=== PATIENT | male | born 1985 | race Caucasian/White ===

== ENCOUNTER 2019-11-18 21:20 | Emergency (ER) | payer OTHER ==
[~2019-11-18] VITALS: Ht 193 cm; Wt 108.9 kg
[2019-11-18] MEDS ORDERED: SYNTHROID200 MCG (21:52)
[2019-11-18 22:46] LABS: ABSOLUTE BASOPHILS 0.1 thou/uL (0.0-0.2); ABSOLUTE EOSINOPHILS 0.1 thou/uL (0.0-0.7); ABSOLUTE LYMPHOCYTES 1.6 thou/uL (0.8-5.3); ABSOLUTE MONOCYTES 0.7 thou/uL (0.0-1.2); ABSOLUTE NEUTROPHILS 6.6 thou/uL (1.6-8.1); BASOPHILS 0.9 %; EOSINOPHILS 1.2 %; HEMATOCRIT 45.8 % (42.0-52.0); LYMPHOCYTES 17.9 %; MCH 31.1 pg (26.0-34.0); MCHC 34.9 g/dL (28.0-37.0); MCV 89.1 fL (80.0-100.0); MONOCYTES 7.8 %; MPV 8.1 fl. (7.2-11.1); NUCLEATED RBCS 0 /100WBC; PLATELET COUNT* 291 thou/uL (150-400); POLYS 72.2 %; RBC 5.14 mil/uL (4.50-6.00); RDW-CV 13.4 % (10.5-14.5); WBC 9.2 thou/uL (4.0-11.0)
[2019-11-18 22:54] LABS: CALCIUM 8.6 mg/dL (8.5-10.1); CREATININE 1.1 mg/dL (0.6-1.3); POTASSIUM 3.5 mmol/L (3.5-5.1)
[2019-11-18 23:04] LABS: TOTAL BILIRUBIN 0.6 mg/dL (<0.1-1.0); TOTAL PROTEIN 7.5 g/dL (6.4-8.2)
[2019-11-18] MEDS ORDERED: LEVOTHYROXINE200 MC1 PO (23:43)
[2019-11-18 23:47] VITALS: BP 121/74
== END 2019-11-18 23:48 | disposition home or self-care (01) ==
LOC: M.ERS 21:20
PROVIDERS: Physician Assistant
DX: R94.6 Abnormal results of thyroid function studies (principal); E03.9 Hypothyroidism, unspecified; F17.200 Nicotine dependence, unspecified, uncomplicated